=== PATIENT | female | born 2005 | race Caucasian/White ===

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

== ENCOUNTER 2024-09-06 15:57 | Emergency (ER) | payer SELFPAY ==
[2024-09-06 16:25] VITALS: TEMP 97; O2SAT 98
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
[2024-09-06 17:13] VITALS: BP 120/64; PULSE 92; RESP 18
== END 2024-09-06 17:25 | disposition home or self-care (01) ==
LOC: ED 15:57
DX: S16.1XXA Strain of muscle, fascia and tendon at neck level, initial encounter (principal); S00.03XA Contusion of scalp, initial encounter; V58.5XXA Driver of pick-up truck or van injured in noncollision transport accident in traffic accident, initial encounter
CPT/HCPCS: 70450; 71045; 72125; 99285

== ENCOUNTER 2024-10-15 14:55 | Emergency (ER) | payer SELFPAY ==
[2024-10-15 15:13] VITALS: TEMP 97.6
--- NOTE | 2024-10-15 15:23 | ERPHSYRPT ---
- History of Present Illness Time Seen by Provider: 10/15/24 15:04 Source: patient Exam Limitations: no limitations Patient Subjective Stated Complaint: PT states "I was at work and I started to feel tired and like I was going to throw up and I went to the bathroom and I did throw up and it looked like blood." Triage Nursing Assessment: Pt presented alert and oriented X 3, skin pwd. Pt ambulates with an upright steady gait, able to speak in clear full sentences. Pt resting comfortably on the bed in no apparent respiratory distress. Physician History: The patient is a 19-year-old female who was at work when she started feeling her vision narrow, start feeling nauseous, felt she may pass out, so she went to the bathroom, had some improvement after a minute, then she had vomiting episode had blood in it. Patient did not lose consciousness, she denied any chest pain or abdominal pain prior to the vomiting, denied any active chest pain or abdominal pain currently, and denies any back pain, blood in her urine, black or red stools at all over the past 2 days. 2 days ago she did have 1 episode of a bloody nose that she was able to get stopped on her own without any intervention. Patient denies any new medications, denies any exposures at work of any chemicals or any sick contacts at work or anywhere else. Patient has not been evaluated or treated for symptoms prior to coming into the emergency department. Timing/Duration: today, sudden, improved Severity: moderate Modifying Factors: Improves With: nothing Associated Symptoms: nausea, vomiting, malaise, other (Narrowing of her vision), No abdominal pain, No shortness of breath, No diaphoresis, No cough, No chills, No chest pain, No fever, No headaches, No syncope, No seizure Allergies/Adverse Reactions: No Known Drug Allergies Allergy (Verified 09/06/24 16:01) Home Medications: No Reportable Medications [No Reported Medications] 10/15/24 [History] Hx Tetanus, Diphtheria Vaccination/Date Given: No Hx Influenza Vaccination/Date Given: No Hx Pneumococcal Vaccination/Date Given: No Immunizations Up to Date: No Travel Risk - International Travel Have you traveled outside of the country in past 3 weeks: No - Emerging Infectious Disease Are you exhibiting symptoms associated with any current EIDs: No - Review of Systems Constitutional: Fatigue, Malaise, Weakness, No Fever, No Chills Eyes: No Symptoms, Vision Changes, No Discharge, No Eye Pain, No Double Vision Ears, Nose, & Throat: No Symptoms, Epistaxis (2 days ago), No Ear Pain, No Ear Discharge, No Tinnitus, No Nose Congestion, No Mouth Pain, No Throat Pain, No Painful Swallowing Respiratory: No Cough, No Dyspnea Cardiac: No Chest Pain, No Edema, No Syncope Abdominal/Gastrointestinal: Nausea, Vomiting, Hematemesis, No Abdominal Pain, No Diarrhea, No Hematochezia, No Melena Genitourinary Symptoms: No Dysuria, No Hematuria, No Flank Pain, No , No Vaginal Bleeding, No Vaginal Discharge Musculoskeletal: No Back Pain, No Neck Pain, No Myalgias Skin: No Rash Neurological: Dizziness, No Focal Weakness, No Headache, No Parasthesia, No Seizure, No Sensory Changes Psychological: No Symptoms Endocrine: No Symptoms Hematologic/Lymphatic: No Easy Bleeding, No Easy Bruising All Other Systems: Reviewed and Negative - Past Medical History Pertinent Past Medical History: Yes Neurological History: No Pertinent History ENT History: No Pertinent History Cardiac History: No Pertinent History Respiratory History: No Pertinent History Endocrine Medical History: No Pertinent History Musculoskeletal History: No Pertinent History GI Medical History: No Pertinent History History: No Pertinent History Psycho-Social History: Anxiety Female Reproductive Disorders: No Pertinent History Other Medical History: PT. HAD FEBRILE SZ AT 1 Y/O; PT. HAD NO MORE EPISODES AFTER. frequent tonsil infections. inhaler due to to seasonal allergies - Past Surgical History Past Surgical History: No Neuro Surgical History: No Pertinent History Cardiac: No Pertinent History Respiratory: No Pertinent History Gastrointestinal: No Pertinent History Genitourinary: No Pertinent History Musculoskeletal: No Pertinent History Female Surgical History: No Pertinent History Significant Family History: no pertinent family hx - Female History Hx Last Menstrual Period: 09/25/2024 Hx Now: No - Social History Smoking Status: Never smoker Exposure to second hand smoke: Yes Drug Use: none - Social Determinants of Health Will the patient participate in the screening: Declined to provide - Nursing Vital Signs Nursing Vital Signs: Initial Vital Signs Temperature 97.6 F 10/15/24 15:04 Pulse Rate 90 10/15/24 15:04 Respiratory Rate 16 10/15/24 15:04 Blood Pressure 116/79 10/15/24 15:04 O2 Sat by Pulse Oximetry 100 10/15/24 15:04 Pain Scale Pain Intensity 0 - Physical Exam General Appearance: no apparent distress, alert Eye Exam: PERRL/EOMI, eyes nml inspection, No scleral icterus Ears, Nose, Throat Exam: normal ENT inspection, TMs normal, pharynx normal, moist mucous membranes Neck Exam: normal inspection, non-tender, supple, full range of motion, No meningismus, No Brudzinski, No Kernig's, No JVD Respiratory Exam: normal breath sounds, lungs clear, No respiratory distress Cardiovascular Exam: regular rate/rhythm, normal heart sounds, normal peripheral pulses Gastrointestinal/Abdomen Exam: soft, normal bowel sounds, No tenderness, No distention, No mass, No guarding, No hepatomegaly, No organomegaly, No splenomegaly Back Exam: normal inspection, normal range of motion, No CVA tenderness, No vertebral tenderness Extremity Exam: normal inspection, normal range of motion, pelvis stable Neurologic Exam: alert, oriented x 3, cooperative, 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, normal mood/affect, nml cerebellar function, sensation nml, No motor deficits, No sensory deficit, No motor weakness, No facial droop, No dysarthria Skin Exam: normal color, warm, dry, No rash, No cyanosis, No jaundice Lymphatic Exam: No adenopathy SpO2 Interpretation: normal SpO2: 100 O2 Delivery: Room Air - Course Nursing assessment & vital signs reviewed: Yes EKG Interpreted by Me: RATE (69), Sinus Rhythm, NORMAL AXIS, NORMAL INTERVALS, N ORMAL QRS, NORMAL ST-T, Other (Negative previous EKG for comparison) - Radiology Exams Abdomen X-ray Interpretation: Reviewed by me, Teleradiologist Report, Negative Ordered Tests: Active Orders 24 hr Category Date Time Status Inclusion Internship STAT Care 10/15/24 15:12 Active Clean Catch Urine Specimen STAT Care 10/15/24 16:05 Active EKG-ER Only STAT Care 10/15/24 15:11 Active IV Insertion STAT Care 10/15/24 15:11 Active Orthostatic Vital Signs STAT Care 10/15/24 15:13 Active HEAD WITHOUT CONTRAST [CT] Stat Exams 10/15/24 15:13 Completed OBSTR/ACUTE ABDOMEN SERIES Stat Exams 10/15/24 15:24 Completed Alcohol [ETHYL ALCOHOL] Stat Lab 10/15/24 15:43 Completed CBC W DIFF Stat Lab 10/15/24 15:43 Completed CK-Creatinine Phosphokinase Stat Lab 10/15/24 15:43 Completed CMP Stat Lab 10/15/24 15:43 Completed CULTURE,URINE Stat Lab 10/15/24 15:39 Received D-DIMER QUANTITATIVE Stat Lab 10/15/24 15:43 Completed HCG QUALITATIVE, URINE Stat Lab 10/15/24 16:03 Completed LIPASE Stat Lab 10/15/24 15:43 Completed Lactic Acid Stat Lab 10/15/24 15:16 Completed MAGNESIUM Stat Lab 10/15/24 15:43 Completed NT PRO BNPII Stat Lab 10/15/24 15:43 Completed PROTIME WITH INR Stat Lab 10/15/24 15:43 Completed TROPONIN Q4H Lab 10/15/24 15:43 Completed TROPONIN Q4H Lab 10/15/24 19:15 Ordered TROPONIN Q4H Lab 10/15/24 23:15 Ordered UA W/RFX UR CULTURE Stat Lab 10/15/24 15:39 Completed Urine Triage Profile Stat Lab 10/15/24 16:06 Completed Medication Summary Discontinued Medications Generic Name Dose Route Start Last Admin Trade Name Freq PRN Reason Stop Dose Admin Famotidine 20 mg 10/15/24 15:17 10/15/24 15:46 Famotidine 20 Mg/1 Vial IV 10/15/24 15:18 Not Given STAT ONE Sodium Chloride 1,000 mls @ 999 mls/hr 10/15/24 15:10 10/15/24 16:48 Sodium Chloride 0.9% 1000 Ml IV 10/15/24 16:10 Infused .Q1H1M STA Infusion Sodium Chloride Confirm 10/15/24 15:34 Sodium Chloride 0.9% 1000 Ml Administered 10/15/24 15:35 Dose 1,000 mls @ ud .ROUTE .STK-MED ONE Pantoprazole Sodium 80 mg 10/15/24 15:23 10/15/24 15:46 Pantoprazole 40 Mg Vial IV 10/15/24 15:24 80 mg STAT ONE Administration Pantoprazole Sodium Confirm 10/15/24 15:45 Pantoprazole 40 Mg Vial Administered 10/15/24 15:46 Dose 40 mg IV .STK-MED ONE Pantoprazole Sodium Confirm 10/15/24 15:47 Pantoprazole 40 Mg Vial Administered 10/15/24 15:48 Dose 40 mg IV .STK-MED ONE Lab/Rad Data: Laboratory Result Diagrams 10/15/24 15:43 10/15/24 15:43 Laboratory Results 10/15/24 10/15/24 10/15/24 Range/Units 16:06 16:03 15:43 WBC (3.98-10.04) x10^3/uL RBC (3.93-5.22) x10^6/uL Hgb (11.2-15.7) g/dL Hct (34.1-44.9) % MCV (79.4-94.8) fL MCH (25.6-32.2) pg MCHC (32.2-35.5) g/dL RDW (11.7-14.4) % Plt Count (182-369) x10^3/uL MPV (9.4-12.3) fL Gran % (34.0-71.1) % Immature Gran % (Auto) (0.001-0.429) % Nucleat RBC Rel Count (0.00-0.2) % Eos # (Auto) (0.04-0.36) x10^3/uL Immature Gran # (Auto) (0.001-0.031) x10^3u/L Absolute Lymphs (auto) (1.18-3.74) x10^3/uL Absolute Monos (auto) (0.24-0.86) x10^3/uL Absolute Nucleated RBC (0.00-0.012) x10^3u/L Lymphocytes % (19.3-51.7) % Monocytes % (4.7-12.5) % Eosinophils % (0.7-5.8) % Basophils % (0.1-1.2) % Absolute Granulocytes (1.56-6.13) x10^3/uL Basophils # (0.01-0.08) x10^3/uL PT (9.4-12.5) SECONDS INR (0.8-3.0) D-Dimer (0.0-0.50) mg/L Sodium (135-145) mmol/L Potassium (3.5-5.1) mmol/L Chloride (98-107) mmol/L Carbon Dioxide (22-30) mmol/L Anion Gap (5-15) MEQ/L BUN (7-17) mg/dL Creatinine (0.52-1.04) mg/dL Estimated GFR ML/MIN Glucose (74-106) mg/dL Lactic Acid (0.4-2.0) Calcium (8.4-10.2) mg/dL Magnesium (1.6-2.3) mg/dL Total Bilirubin (0.2-1.3) mg/dL AST (14-36) U/L ALT (0-35) U/L Alkaline Phosphatase (38-126) U/L Creatine Kinase (30-135) U/L Troponin I (0.000-0.033) ng/mL NT-Pro-B Natriuret Pep (<300) pg/mL Serum Total Protein (6.3-8.2) g/dL Albumin (3.5-5.0) g/dL Lipase (23-300) U/L Urine Color (Yellow) Urine Appearance (Clear) Urine pH (4.6-8.0) Ur Specific [place] (1.005-1.030) Urine Protein (Negative) Urine Glucose (UA) (Negative) mg/dL Urine Ketones (Negative) Urine Blood (Negative) Urine Nitrite (Negative) Urine Bilirubin (Negative) Urine Urobilinogen (0.2) mg/dL Ur Leukocyte Esterase (Negative) U Hyaline Cast (Auto) (0-2) /LPF Urine Microscopic RBC (0-5) /HPF Urine Microscopic WBC (0-5) /HPF Ur Epithelial Cells (None Seen) /HPF Urine Bacteria (None Seen) /HPF Urine Culture Reflexed (NO) Urine HCG, Qual NEGATIVE (NEGATIVE) Urine Opiates Level NEGATIVE (NEGATIVE) Ur Methadone NEGATIVE (NEGATIVE) Urine Barbiturates NEGATIVE (NEGATIVE) Ur Phencyclidine (PCP) NEGATIVE (NEGATIVE) Urine Amphetamine NEGATIVE (NEGATIVE) U Benzodiazepine Level NEGATIVE (NEGATIVE) Urine Cocaine NEGATIVE (NEGATIVE) Urine Marijuana (THC) NEGATIVE (NEGATIVE) Ethyl Alcohol < 10 (0-10) mg/dL 10/15/24 10/15/24 10/15/24 Range/Units 15:43 15:43 15:43 WBC (3.98-10.04) x10^3/uL RBC (3.93-5.22) x10^6/uL Hgb (11.2-15.7) g/dL Hct (34.1-44.9) % MCV (79.4-94.8) fL MCH (25.6-32.2) pg MCHC (32.2-35.5) g/dL RDW (11.7-14.4) % Plt Count (182-369) x10^3/uL MPV (9.4-12.3) fL Gran % (34.0-71.1) % Immature Gran % (Auto) (0.001-0.429) % Nucleat RBC Rel Count (0.00-0.2) % Eos # (Auto) (0.04-0.36) x10^3/uL Immature Gran # (Auto) (0.001-0.031) x10^3u/L Absolute Lymphs (auto) (1.18-3.74) x10^3/uL Absolute Monos (auto) (0.24-0.86) x10^3/uL Absolute Nucleated RBC (0.00-0.012) x10^3u/L Lymphocytes % (19.3-51.7) % Monocytes % (4.7-12.5) % Eosinophils % (0.7-5.8) % Basophils % (0.1-1.2) % Absolute Granulocytes (1.56-6.13) x10^3/uL Basophils # (0.01-0.08) x10^3/uL PT 10.4 (9.4-12.5) SECONDS INR 0.95 (0.8-3.0) D-Dimer 0.23 (0.0-0.50) mg/L Sodium 139 (135-145) mmol/L Potassium 4.2 (3.5-5.1) mmol/L Chloride 105 (98-107) mmol/L Carbon Dioxide 24 (22-30) mmol/L Anion Gap 14.0 (5-15) MEQ/L BUN 13 (7-17) mg/dL Creatinine 0.74 (0.52-1.04) mg/dL Estimated GFR 118.7 ML/MIN Glucose 109 H (74-106) mg/dL Lactic Acid (0.4-2.0) Calcium 9.9 (8.4-10.2) mg/dL Magnesium 1.8 (1.6-2.3) mg/dL Total Bilirubin 0.50 (0.2-1.3) mg/dL AST 40 H (14-36) U/L ALT 44 H (0-35) U/L Alkaline Phosphatase 56 (38-126) U/L Creatine Kinase 307 H (30-135) U/L Troponin I < 0.012 (0.000-0.033) ng/mL NT-Pro-B Natriuret Pep < 20.0 (<300) pg/mL Serum Total Protein 8.2 (6.3-8.2) g/dL Albumin 5.0 (3.5-5.0) g/dL Lipase 76 (23-300) U/L Urine Color (Yellow) Urine Appearance (Clear) Urine pH (4.6-8.0) Ur Specific [place] (1.005-1.030) Urine Protein (Negative) Urine Glucose (UA) (Negative) mg/dL Urine Ketones (Negative) Urine Blood (Negative) Urine Nitrite (Negative) Urine Bilirubin (Negative) Urine Urobilinogen (0.2) mg/dL Ur Leukocyte Esterase (Negative) U Hyaline Cast (Auto) (0-2) /LPF Urine Microscopic RBC (0-5) /HPF Urine Microscopic WBC (0-5) /HPF Ur Epithelial Cells (None Seen) /HPF Urine Bacteria (None Seen) /HPF Urine Culture Reflexed (NO) Urine HCG, Qual (NEGATIVE) Urine Opiates Level (NEGATIVE) Ur Methadone (NEGATIVE) Urine Barbiturates (NEGATIVE) Ur Phencyclidine (PCP) (NEGATIVE) Urine Amphetamine (NEGATIVE) U Benzodiazepine Level (NEGATIVE) Urine Cocaine (NEGATIVE) Urine Marijuana (THC) (NEGATIVE) Ethyl Alcohol (0-10) mg/dL 10/15/24 10/15/24 10/15/24 Range/Units 15:43 15:39 15:16 WBC 5.2 (3.98-10.04) x10^3/uL RBC 4.45 (3.93-5.22) x10^6/uL Hgb 13.3 (11.2-15.7) g/dL Hct 40.5 (34.1-44.9) % MCV 91.0 (79.4-94.8) fL MCH 29.9 (25.6-32.2) pg MCHC 32.8 (32.2-35.5) g/dL RDW 12.7 (11.7-14.4) % Plt Count 336 (182-369) x10^3/uL MPV 10.2 (9.4-12.3) fL Gran % 50.2 (34.0-71.1) % Immature Gran % (Auto) 0.2 (0.001-0.429) % Nucleat RBC Rel Count 0.0 (0.00-0.2) % Eos # (Auto) 0.09 (0.04-0.36) x10^3/uL Immature Gran # (Auto) 0.01 (0.001-0.031) x10^3u/L Absolute Lymphs (auto) 2.03 (1.18-3.74) x10^3/uL Absolute Monos (auto) 0.43 (0.24-0.86) x10^3/uL Absolute Nucleated RBC 0.00 (0.00-0.012) x10^3u/L Lymphocytes % 39.0 (19.3-51.7) % Monocytes % 8.3 (4.7-12.5) % Eosinophils % 1.7 (0.7-5.8) % Basophils % 0.6 (0.1-1.2) % Absolute Granulocytes 2.62 (1.56-6.13) x10^3/uL Basophils # 0.03 (0.01-0.08) x10^3/uL PT (9.4-12.5) SECONDS INR (0.8-3.0) D-Dimer (0.0-0.50) mg/L Sodium (135-145) mmol/L Potassium (3.5-5.1) mmol/L Chloride (98-107) mmol/L Carbon Dioxide (22-30) mmol/L Anion Gap (5-15) MEQ/L BUN (7-17) mg/dL Creatinine (0.52-1.04) mg/dL Estimated GFR ML/MIN Glucose (74-106) mg/dL Lactic Acid 0.7 (0.4-2.0) Calcium (8.4-10.2) mg/dL Magnesium (1.6-2.3) mg/dL Total Bilirubin (0.2-1.3) mg/dL AST (14-36) U/L ALT (0-35) U/L Alkaline Phosphatase (38-126) U/L Creatine Kinase (30-135) U/L Troponin I (0.000-0.033) ng/mL NT-Pro-B Natriuret Pep (<300) pg/mL Serum Total Protein (6.3-8.2) g/dL Albumin (3.5-5.0) g/dL Lipase (23-300) U/L Urine Color Yellow (Yellow) Urine Appearance Cloudy A (Clear) Urine pH 5.5 (4.6-8.0) Ur Specific [place] >=1.030 A (1.005-1.030) Urine Protein Trace A (Negative) Urine Glucose (UA) Negative (Negative) mg/dL Urine Ketones Negative (Negative) Urine Blood Negative (Negative) Urine Nitrite Negative (Negative) Urine Bilirubin Negative (Negative) Urine Urobilinogen 0.2 (0.2) mg/dL Ur Leukocyte Esterase Trace A (Negative) U Hyaline Cast (Auto) NONE SEEN (0-2) /LPF Urine Microscopic RBC 0-2 (0-5) /HPF Urine Microscopic WBC 21-50 A (0-5) /HPF Ur Epithelial Cells Moderate A (None Seen) /HPF Urine Bacteria Many A (None Seen) /HPF Urine Culture Reflexed YES (NO) Urine HCG, Qual (NEGATIVE) Urine Opiates Level (NEGATIVE) Ur Methadone (NEGATIVE) Urine Barbiturates (NEGATIVE) Ur Phencyclidine (PCP) (NEGATIVE) Urine Amphetamine (NEGATIVE) U Benzodiazepine Level (NEGATIVE) Urine Cocaine (NEGATIVE) Urine Marijuana (THC) (NEGATIVE) Ethyl Alcohol (0-10) mg/dL Acute abdominal series with PA of the chest per radiology interpretation as below: Comparison: None 2 view abdomen nonacute and nonobstructed with mild scattered fecal debris greatest in right hemicolon. Solid organs and osseous structures unremarkable. Single PA chest demonstrates normal heart, lungs, bony thorax. Impression: Nonacute nonobstructed abdomen. Normal one view chest. Reported by: ROSE DRISCOLL DO Signed by: ROSE DRISCOLL DO Signed date/time: 10/15/[address] of the head without contrast per radiology interpretation as below: Indication: Dizziness. Near syncope. Nausea. Multiple contiguous axial images obtained through the head without contrast. Normal appearing brain parenchyma, ventricles, and bony calvarium. Visualized paranasal sinuses and mastoid air cells are clear. Impression: Again normal CT head without contrast exam compared to ER CT exam September 06, 2024. Reported by: ROSE DRISCOLL DO Signed by: ROSE DRISCOLL DO Signed date/time: 10/15/24 1705 - Progress Progress: improved, re-examined Progress Note: 10/15/24 17:57 Patient is feeling much better, is hemodynamically good condition with sinus rhythm throughout her time on playground monitor, and has no further episodes of any vomiting of blood. Patient has no tenderness on repeat evaluation of her abdomen. I reviewed with her and her grandmother the results of the workup and patient can be followed up as an outpatient. 10/15/24 15:21 Patient is a 19-year-old female that had change in vision dizziness and a near syncopal episode while at work, then had a episode of hematemesis, so she came to emergency room for further evaluation. Patient had orthostatic vitals ordered, EKG ordered, chest x-ray ordered, CT of the head ordered, labs ordered, continuous cardiac and SpO2 monitoring and IV Protonix started with IV fluids. Patient has a normal CBC with an H&H 13.3/40, normal lactic acid 0.7, normal PT/INR, normal D-dimer, normal lipase 36 with a negative proBNP and a negative troponin as well as a slightly elevated CK of 307 but with normal creatinine on the CMP. Patient's urine hCG was negative, patient urinalysis was negative for any significant abnormalities and her urine drug screen was negative. Acute abdominal series with PA of the chest was negative for any signs of obstruction or free air and any cardiopulmonary process, and the CT of the head was negative for explanation of her symptoms. Patient at this time can be discharged home and follow-up as an outpatient with general surgery to determine the need for an upper GI endoscopy as an outpatient. Patient and her grandmother send return back to the nearest emergency room she has any fever, chills, new abdominal pain, new hematuria, new hematemesis, new melena or hematochezia, new back pain or chest pain, new syncopal event, new focal weakness, new headache or any other concerning signs or symptoms that were not present at today's emergency room visit for immediate reevaluation in the nearest emergency department Counseled pt/family regarding: lab results, diagnosis, need for follow-up, rad results Medical Desision Making - Diagnostic Testing Diagnostic test were ordered, analyzed, and reviewed by me: Yes Radiological Interpretation: Reviewed by me, Teleradiologist Report - Risk of complications Low Risk: Low risk of morbidity from additional dx testing or treatment - Departure Departure Disposition: Home Clinical Impression: Near syncope Hematemesis Qualifiers: Nausea presence: unspecified Qualified Code(s): K92.0 - Hematemesis Condition: Good Critical Care Time: No Referrals: LUZ VILLAFANA NP [Primary Care Provider] - Follow Up with PCP/3 days ROSALEE WANG MD [ACTIVE STAFF] - Follow Up with PCP/3 days (General surgeon for you to follow-up your vomiting blood) Instructions: GI bleed - Discharge instructions, Gastric Ulcer ED, Near Fainting (DC) Additional Instructions: Return back to the nearest emergency department if you have any worsening vomiting blood, new abdominal pain, and new dizziness, new chest pain, new heart racing sensation, new shortness of breath, new fever, new black or red stools, new blood in your urine, new bruising or skin rash, feeling weak or faint or any fainting spells or any other concerning signs or symptoms that were not present at today's emergency room visit for immediate reevaluation in the nearest emergency department Forms: Work/School Release Form
[2024-10-15] MEDS ORDERED: Sodium Chloride 0.9% 1000 ML 1,000 ML ONE (15:34)
[2024-10-15] MEDS: Sodium Chloride 0.9% 1000 ML 1,000 ML IV STA (15:37)
[2024-10-15] MEDS ORDERED: PROTONIX 40 MG IV IV ONE ×2 (15:45→15:47)
[2024-10-15] MEDS: Pepcid 20 MG VIAL IV ONE (15:46)
[2024-10-15] MEDS: PROTONIX 40 MG IV IV ONE (15:46)
[2024-10-15 15:55] LABS: Absolute Neutrophil Ct (ANC) 2.62 x10^3/uL (1.56-6.13); BASOPHIL % 0.6 % (0.1-1.2); Basophil (Absolute #) 0.03 x10^3/uL (0.01-0.08); Eosinophil % 1.7 % (0.7-5.8); Eosinophil (Absolute #) 0.09 x10^3/uL (0.04-0.36); Hematocrit 40.5 % (34.1-44.9); Hemoglobin 13.3 g/dL (11.2-15.7); IMMATURE GRAN # 0.01 x10^3u/L (0.001-0.031); IMMATURE GRAN % 0.2 % (0.001-0.429); Lymphocyte (Absolute #) 2.03 x10^3/uL (1.18-3.74); Mean Corpuscular Hemoglobin 29.9 pg (25.6-32.2); Mean Corpuscular Hgb Concent. 32.8 g/dL (32.2-35.5); Mean Platelet Volume 10.2 fL (9.4-12.3); Monocyte (Absolute #) 0.43 x10^3/uL (0.24-0.86); Monocytes % 8.3 % (4.7-12.5); Neutrophil % 50.2 % (34.0-71.1); Platelet Count 336 x10^3/uL (182-369); Red Blood Count 4.45 x10^6/uL (3.93-5.22); Red Cell Distribution Width 12.7 % (11.7-14.4); White Blood Count 5.2 x10^3/uL (3.98-10.04)
[2024-10-15 15:58] LABS: D-DIMER QUANTITATIVE 0.23 mg/L (0.0-0.50); INR 0.95 (0.8-3.0); PROTIME 10.4 SECONDS (9.4-12.5)
[2024-10-15 16:00] LABS: BILIRUBIN,TOTAL 0.5 mg/dL (0.2-1.3); Calcium 9.9 mg/dL (8.4-10.2); Creatinine 1 0.74 mg/dL (0.52-1.04); EST GLOMERULAR FILTRATION RATE 118.7 ML/MIN; MAGNESIUM 1.8 mg/dL (1.6-2.3); Potassium 4.2 mmol/L (3.5-5.1); Total Protein 8.2 g/dL (6.3-8.2)
[2024-10-15 16:06] LABS: HCG URINE TEST NEGATIVE (NEGATIVE)
[2024-10-15 16:10] LABS: NT PRO BNPII < 20.0 pg/mL (<300); TROPONIN < 0.012 ng/mL (0.000-0.033)
[2024-10-15 16:19] LABS: Appearance Cloudy (Clear); Bacteria Many /HPF (None Seen); Bilirubin Negative (Negative); Blood Negative (Negative); Epithelial Cells Moderate /HPF (None Seen); Glucose, Urine Negative (Negative); Hyaline Casts NONE SEEN /LPF (0-2); Ketones Negative (Negative); Leukocyte Esterase Trace (Negative); Nitrite Negative (Negative); Ph 5.5 (4.6-8.0); Protein,Urine Dip Trace (Negative); RBC 0-2 /HPF (0-5); Specific Gravity >=1.030 (1.005-1.030); Urobilinogen 0.2 mg/dL (0.2); WBC 21-50 /HPF (0-5)
[2024-10-15 16:49] LABS: Amphetamine,Urine NEGATIVE (NEGATIVE); Barbiturate,Urine NEGATIVE (NEGATIVE); Benzodiazepine,Urine NEGATIVE (NEGATIVE); Cocaine,Urine NEGATIVE (NEGATIVE); Methadone,Urine NEGATIVE (NEGATIVE); Opiate,Urine NEGATIVE (NEGATIVE); PCP,Urine NEGATIVE (NEGATIVE); THC,Urine NEGATIVE (NEGATIVE)
[2024-10-15 17:10] VITALS: PULSE 79
--- NOTE | 2024-10-15 17:10 | XRAY ---
Indication: Hematemesis. Near-syncope. Comparison: None 2 view abdomen nonacute and nonobstructed with mild scattered fecal debris greatest in right hemicolon. Solid organs and osseous structures unremarkable. Single PA chest demonstrates normal heart, lungs, bony thorax. Impression: Nonacute nonobstructed abdomen. Normal one view chest.
--- NOTE | 2024-10-15 17:10 | XRAY ---
Indication: Dizziness. Near syncope. Nausea. Multiple contiguous axial images obtained through the head without contrast. Normal appearing brain parenchyma, ventricles, and bony calvarium. Visualized paranasal sinuses and mastoid air cells are clear. Impression: Again normal CT head without contrast exam compared to ER CT exam September 06, 2024.
[2024-10-15 18:04] VITALS: BP 113/88; RESP 15
[2024-10-15 18:09] VITALS: O2SAT 100
== END 2024-10-15 18:21 | disposition home or self-care (01) ==
LOC: ED 14:55
DX: R55 Syncope and collapse (principal); K92.0 Hematemesis
CPT/HCPCS: 36415; 70450; 74022; 80053; 80307; 81001; 81025; 82077; 82550; 83605; 83690; 83735; 83880; 84484; 85025; 85379; 85610; 87086; 93005; 93041; 96361; 96374; 99285

== ENCOUNTER 2025-01-10 18:00 | Emergency (ER) | payer OTHER ==
[2025-01-10 18:20] VITALS: TEMP 97.2
[2025-01-10 18:40] LABS: HCG URINE TEST NEGATIVE (NEGATIVE)
[2025-01-10 18:43] LABS: Appearance Clear (Clear); Bacteria Few /HPF (None Seen); Bilirubin Negative (Negative); Blood Negative (Negative); Epithelial Cells Moderate /HPF (None Seen); Glucose, Urine Negative (Negative); Hyaline Casts NONE SEEN /LPF (0-2); Ketones Negative (Negative); Leukocyte Esterase Moderate (Negative); Nitrite Negative (Negative); Protein,Urine Dip Negative (Negative); RBC 0-2 /HPF (0-5); Specific Gravity 1.025 (1.005-1.030); WBC 21-50 /HPF (0-5)
--- NOTE | 2025-01-10 19:28 | ERPHSYRPT ---
- History of Present Illness Source: patient Exam Limitations: no limitations Patient Subjective Stated Complaint: Pt states 'I think I have a UTI, it albarran really bad, I am not sure if I am or not and I have these sores on the outside of my vagina." Triage Nursing Assessment: Pt presented alert and oriented X 3, skin wpd. Pt ambulates with an upright steady gait, able to speak in clear full sentences. PT resting comfortably on the bed. Physician History: Patient has some vesicular lesions in her vaginal area. Is her first outbreak. It happened about 2 days ago. Prior to that she started having some pain in the area but no rash. She has some dysuria with it. She does not have any fever or chills or nausea or vomiting or other systemic symptoms. She says she did feel little bit rundown though. She think she may be .Her last period was months ago.She does not have any abdominal pain. Activites at Onset: none Allergies/Adverse Reactions: No Known Drug Allergies Allergy (Verified 09/06/24 16:01) Home Medications: No Reportable Medications [No Reported Medications] 10/15/24 [History] Hx Tetanus, Diphtheria Vaccination/Date Given: No Hx Influenza Vaccination/Date Given: No Hx Pneumococcal Vaccination/Date Given: No Travel Risk - International Travel Have you traveled outside of the country in past 3 weeks: No - Emerging Infectious Disease Are you exhibiting symptoms associated with any current EIDs: No - Review of Systems Constitutional: No Symptoms Eyes: No Symptoms Respiratory: No Symptoms Cardiac: No Symptoms Abdominal/Gastrointestinal: No Symptoms Genitourinary Symptoms: Dysuria, Vaginal Itching Musculoskeletal: No Symptoms Skin: No Symptoms Neurological: No Symptoms - Past Medical History Pertinent Past Medical History: Yes Neurological History: No Pertinent History ENT History: No Pertinent History Cardiac History: No Pertinent History Respiratory History: No Pertinent History Endocrine Medical History: No Pertinent History Musculoskeletal History: No Pertinent History GI Medical History: No Pertinent History History: No Pertinent History Psycho-Social History: Anxiety Female Reproductive Disorders: No Pertinent History Other Medical History: PT. HAD FEBRILE SZ AT 1 Y/O; PT. HAD NO MORE EPISODES AFTER. frequent tonsil infections. inhaler due to to seasonal allergies - Past Surgical History Past Surgical History: No Neuro Surgical History: No Pertinent History Cardiac: No Pertinent History Respiratory: No Pertinent History Gastrointestinal: No Pertinent History Genitourinary: No Pertinent History Musculoskeletal: No Pertinent History Female Surgical History: No Pertinent History Significant Family History: no pertinent family hx - Female History Hx Last Menstrual Period: 11/30/2024 Hx Now: (unknown) - Social History Smoking Status: Never smoker Exposure to second hand smoke: Yes Drug Use: none - Social Determinants of Health Will the patient participate in the screening: Declined to provide - Nursing Vital Signs Nursing Vital Signs: Initial Vital Signs Temperature 97.2 F 01/10/25 18:05 Pulse Rate 84 01/10/25 18:05 Respiratory Rate 18 01/10/25 18:05 Blood Pressure 148/88 01/10/25 18:05 O2 Sat by Pulse Oximetry 98 01/10/25 18:05 Pain Scale Pain Intensity 9 - Physical Exam General Appearance: no apparent distress Eye Exam: PERRL/EOMI Gastrointestinal/Abdomen Exam: soft, normal bowel sounds, tenderness Extremity Exam: normal inspection, normal range of motion Neurologic Exam: alert, oriented x 3, cooperative SpO2: 98 Ordered Tests: Active Orders 24 hr Category Date Time Status CULTURE,URINE Stat Lab 01/10/25 18:28 Received HCG QUALITATIVE, URINE Stat Lab 01/10/25 18:28 Completed UA W/RFX UR CULTURE Stat Lab 01/10/25 18:28 Completed Lab/Rad Data: Laboratory Results 01/10/25 01/10/25 01/10/25 Range/Units 20:35 18:28 18:28 Urine Color (Yellow) Urine Appearance (Clear) Urine pH (4.6-8.0) Ur Specific [place] (1.005-1.030) Urine Protein (Negative) Urine Glucose (UA) (Negative) mg/dL Urine Ketones (Negative) Urine Blood (Negative) Urine Nitrite (Negative) Urine Bilirubin (Negative) Urine Urobilinogen (0.2) mg/dL Ur Leukocyte Esterase (Negative) U Hyaline Cast (Auto) (0-2) /LPF Urine Microscopic RBC (0-5) /HPF Urine Microscopic WBC (0-5) /HPF Ur Epithelial Cells (None Seen) /HPF Urine Bacteria (None Seen) /HPF Urine Culture Reflexed (NO) Urine HCG, Qual NEGATIVE (NEGATIVE) Vaginal Chelo Group NOT DETECTED (NEGATIVE) Chelo species NOT DETECTED (NEGATIVE) Chlamydia DNA Probe NOT DETECTED (NEGATIVE) N.gonorrhoeae DNA Probe NOT DETECTED (NEGATIVE) T. vaginalis (PCR) NOT DETECTED (NEGATIVE) Bact vaginosis (PCR) POSITIVE A (NEGATIVE) 01/10/25 Range/Units 18:28 Urine Color Yellow (Yellow) Urine Appearance Clear (Clear) Urine pH 5.0 (4.6-8.0) Ur Specific [place] 1.025 (1.005-1.030) Urine Protein Negative (Negative) Urine Glucose (UA) Negative (Negative) mg/dL Urine Ketones Negative (Negative) Urine Blood Negative (Negative) Urine Nitrite Negative (Negative) Urine Bilirubin Negative (Negative) Urine Urobilinogen 1.0 A (0.2) mg/dL Ur Leukocyte Esterase Moderate A (Negative) U Hyaline Cast (Auto) NONE SEEN (0-2) /LPF Urine Microscopic RBC 0-2 (0-5) /HPF Urine Microscopic WBC 21-50 A (0-5) /HPF Ur Epithelial Cells Moderate A (None Seen) /HPF Urine Bacteria Few A (None Seen) /HPF Urine Culture Reflexed YES (NO) Urine HCG, Qual (NEGATIVE) Vaginal Chel[place] Group (NEGATIVE) Chelo species (NEGATIVE) Chlamydia DNA Probe (NEGATIVE) N.gonorrhoeae DNA Probe (NEGATIVE) T. vaginalis (PCR) (NEGATIVE) Bact vaginosis (PCR) (NEGATIVE) - Progress Air Movement: good Progress Note: I do not think the patient has herpes. She does have bacterial vaginosis. The herpes is a send out. She did not have any physical symptoms of it. At this time is going to give her someFlagyl for the BV.She is not either.The other cultures and STD panels are pending. And when to send the patient home we will call her with the results 01/10/25 22:31 Blood Culture(s) Obtained: No - Departure Departure Disposition: Home Clinical Impression: Bacterial vaginosis Condition: Stable Critical Care Time: No Referrals: LUZ VILLAFANA NP [Primary Care Provider, [facility]] - Follow up/PCP as directed Instructions: Bacterial vaginosis - ED discharge instructions
[2025-01-10 20:02] LABS: CHLAMYDIA DNA NOT DETECTED (NEGATIVE); GC DNA Probe NOT DETECTED (NEGATIVE)
[2025-01-10 21:47] LABS: Candida Group NOT DETECTED (NEGATIVE); Candida glab/krus NOT DETECTED (NEGATIVE)
[2025-01-10 22:12] VITALS: BP 111/65; PULSE 86; RESP 20
[2025-01-10 22:33] VITALS: O2SAT 98
== END 2025-01-10 22:53 | disposition home or self-care (01) ==
LOC: ED 18:00
DX: N76.0 Acute vaginitis (principal); R10.2 Pelvic and perineal pain; Z79.899 Other long term (current) drug therapy
CPT/HCPCS: 81001; 81025; 81515; 87086; 87255; 87491; 87591; 99282; 99283

== ENCOUNTER 2025-03-31 12:41 | Emergency (ER) | payer OTHER ==
[2025-03-31 13:00] VITALS: TEMP 96.8
[2025-03-31] MEDS ORDERED: TYLENOL EXTRA STRENGTH 500 MG ONE (13:00)
[2025-03-31] MEDS: TYLENOL EXTRA STRENGTH 500 MG PO STA (13:00)
[2025-03-31 13:13] LABS: BASOPHIL % 0.3 % (0.1-1.2); Basophil (Absolute #) 0.02 x10^3/uL (0.01-0.08); Eosinophil (Absolute #) 0.12 x10^3/uL (0.04-0.36); Hematocrit 35.6 % (34.1-44.9); Hemoglobin 11.7 g/dL (11.2-15.7); IMMATURE GRAN # 0.03 x10^3u/L (0.001-0.031); IMMATURE GRAN % 0.4 % (0.001-0.429); Lymphocyte (Absolute #) 1.90 x10^3/uL (1.18-3.74); Mean Corpuscular Hemoglobin 30.8 pg (25.6-32.2); Mean Corpuscular Hgb Concent. 32.9 g/dL (32.2-35.5); Monocyte (Absolute #) 0.72 x10^3/uL (0.24-0.86); NUCLEATED RBC # 0.00 x10^3u/L (0.00-0.012); NUCLEATED RBC % 0.0 % (0.00-0.2); Platelet Count 266 x10^3/uL (182-369); Red Blood Count 3.80 x10^6/uL (3.93-5.22); White Blood Count 6.7 x10^3/uL (3.98-10.04)
[2025-03-31 14:13] VITALS: O2SAT 100
--- NOTE | 2025-03-31 14:22 | XRAY ---
Indication: Cramping. Twelve weeks . Two-dimensional transabdominal early OB ultrasound performed. Comparison: None Uterus anteverted with single intrauterine gestational c sac and pole. Mean crown-rump length is 3.20 cm corresponding to 10 weeks 1 day. heart rate 173 bpm. Tiny sliver of subchorionic hemorrhage up to 4 mm thickness. Left and right ovaries are sonographically unremarkable. No suspicious adnexal mass or free fluid. Impression: Single viable intrauterine measuring 10 weeks 1 day. Expected date of confinement is October 26, 2025. Tiny subchorionic hemorrhage.
--- NOTE | 2025-03-31 15:18 | ERPHSYRPT ---
- History of Present Illness Source: patient Exam Limitations: no limitations Patient Subjective Stated Complaint: right lower abdominal pain that shoots down into pelvic area, patient states she is 12 weeks Triage Nursing Assessment: patient states that she is not having any bleeding, patient denies urinary frequency/dysuria, patient states pain is 10/10, patient's skin N/W/D, vitals WNL Physician History: About 30 minutes prior to arrival the patient had an acute onset of pain. It was in her right pelvis and adnexal area. She said it radiated down to her groin. She still has her appendix. She has not had any fever or chills. She has had no vaginal bleeding. She is about 10 to 12 weeks .She has already had 1 ultrasound.Nothing makes his symptoms better or worse. She did not take any Tylenol. She said she did not have time to before she came in.Her pain is improving.Nothing really makes it better or worse. Allergies/Adverse Reactions: No Known Drug Allergies Allergy (Verified 03/31/25 12:54) Home Medications: No Reportable Medications [No Reported Medications] 03/20/25 [History] Hx Tetanus, Diphtheria Vaccination/Date Given: No Hx Influenza Vaccination/Date Given: No Hx Pneumococcal Vaccination/Date Given: No Travel Risk - International Travel Have you traveled outside of the country in past 3 weeks: No - Emerging Infectious Disease Are you exhibiting symptoms associated with any current EIDs: No Symptoms: Abdominal Pain - Review of Systems Constitutional: No Symptoms Eyes: No Symptoms Musculoskeletal: No Symptoms Skin: No Symptoms Neurological: No Symptoms All Other Systems: Reviewed and Negative - Past Medical History Pertinent Past Medical History: Yes Neurological History: No Pertinent History ENT History: No Pertinent History Cardiac History: No Pertinent History Respiratory History: No Pertinent History Endocrine Medical History: No Pertinent History Musculoskeletal History: No Pertinent History GI Medical History: No Pertinent History History: No Pertinent History Psycho-Social History: Anxiety Female Reproductive Disorders: No Pertinent History Other Medical History: PT. HAD FEBRILE SZ AT 1 Y/O; PT. HAD NO MORE EPISODES AFTER. frequent tonsil infections. inhaler due to to seasonal allergies - Past Surgical History Past Surgical History: No Neuro Surgical History: No Pertinent History Cardiac: No Pertinent History Respiratory: No Pertinent History Gastrointestinal: No Pertinent History Genitourinary: No Pertinent History Musculoskeletal: No Pertinent History Female Surgical History: No Pertinent History Significant Family History: no pertinent family hx - Female History Hx Last Menstrual Period: 11/30/2024 Hx Now: Yes Gestational Age: 12 weeks - Social History Smoking Status: Never smoker Exposure to second hand smoke: Yes Drug Use: none - Social Determinants of Health Will the patient participate in the screening: Yes Do you worry about a steady place to live?: No Do you have any problems with any of the following?: No known problems In the past 12 months,have you had to go without utilities?: No Transportation Issues: No Has anyone in your support network made you feel unsafe?: No Have you or anyone in your house had to go w/o enough food: No - Nursing Vital Signs Nursing Vital Signs: Initial Vital Signs Temperature 96.8 F 03/31/25 12:42 Pulse Rate 93 H 03/31/25 12:42 Respiratory Rate 16 03/31/25 12:42 Blood Pressure 119/75 03/31/25 12:42 O2 Sat by Pulse Oximetry 99 03/31/25 12:42 Pain Scale Pain Intensity 4 - Physical Exam General Appearance: no apparent distress Eye Exam: PERRL/EOMI Ears, Nose, Throat Exam: normal ENT inspection Respiratory Exam: normal breath sounds Cardiovascular Exam: regular rate/rhythm Gastrointestinal/Abdomen Exam: soft, normal bowel sounds, No tenderness Pelvic Exam: not done, deferred (And lieu of ultrasound) Rectal Exam: deferred Neurologic Exam: alert Skin Exam: normal color, warm SpO2: 100 - Course Nursing assessment & vital signs reviewed: Yes Ordered Tests: Active Orders 24 hr Category Date Time Status OB <14 WKS 1ST GESTATION [US] Stat Exams 03/31/25 13:03 Completed CBC W DIFF Stat Lab 03/31/25 13:10 Completed HCG, Quantitative (Inhouse) Stat Lab 03/31/25 13:10 Received Medication Summary Discontinued Medications Generic Name Dose Route Start Last Admin Trade Name Freq PRN Reason Stop Dose Admin Acetaminophen 1,000 mg 03/31/25 12:55 03/31/25 13:00 Acetaminophen 500 Mg Tablet PO 03/31/25 12:56 1,000 mg STAT STA Administration Acetaminophen Confirm 03/31/25 13:00 Acetaminophen 500 Mg Tablet Administered 03/31/25 13:01 Dose 1,000 mg .ROUTE .STK-MED ONE Lab/Rad Data: Laboratory Result Diagrams 03/31/25 13:10 Laboratory Results 03/31/25 Range/Units 13:10 WBC 6.7 (3.98-10.04) x10^3/uL RBC 3.80 L (3.93-5.22) x10^6/uL Hgb 11.7 (11.2-15.7) g/dL Hct 35.6 (34.1-44.9) % MCV 93.7 (79.4-94.8) fL MCH 30.8 (25.6-32.2) pg MCHC 32.9 (32.2-35.5) g/dL RDW 13.2 (11.7-14.4) % Plt Count 266 (182-369) x10^3/uL MPV 10.1 (9.4-12.3) fL Gran % 58.3 (34.0-71.1) % Immature Gran % (Auto) 0.4 (0.001-0.429) % Nucleat RBC Rel Count 0.0 (0.00-0.2) % Eos # (Auto) 0.12 (0.04-0.36) x10^3/uL Immature Gran # (Auto) 0.03 (0.001-0.031) x10^3u/L Absolute Lymphs (auto) 1.90 (1.18-3.74) x10^3/uL Absolute Monos (auto) 0.72 (0.24-0.86) x10^3/uL Absolute Nucleated RBC 0.00 (0.00-0.012) x10^3u/L Lymphocytes % 28.4 (19.3-51.7) % Monocytes % 10.8 (4.7-12.5) % Eosinophils % 1.8 (0.7-5.8) % Basophils % 0.3 (0.1-1.2) % Absolute Granulocytes 3.90 (1.56-6.13) x10^3/uL Basophils # 0.02 (0.01-0.08) x10^3/uL - Progress Progress: improved Air Movement: good Progress Note: Patient was stable throughout stay. We got a quantitative hCG. I told her if there is any bleeding she needs to follow-up in 2 to 3 days. Or sooner if the bleeding is severe. An ultrasound showed no acute findings. There is a tiny subchorionic hemorrhage of no significance. Patient's pain-free at this time. I went to discharge her to home. I think she might of had some round ligament pain. 03/31/25 15:15 - Departure Departure Disposition: Home Clinical Impression: Discomfort during Condition: Stable Critical Care Time: No Referrals: LUZ VILLAFANA NP [Primary Care Provider, [facility]] - Follow up/PCP as directed Additional Instructions: Follow-up with your [facility] as scheduled. If bleeding occurs call your [facility]. If it is severe come back to the ER. Tylenol as needed for pain. Return if symptoms worsen.
[2025-03-31 15:38] VITALS: BP 116/70; PULSE 74; RESP 18
== END 2025-03-31 15:39 | disposition home or self-care (01) ==
LOC: ED 12:41
DX: R10.11 Right upper quadrant pain (principal); Z33.1 Pregnant state, incidental